=== PATIENT | female | born 1955 | race Caucasian/White ===

== ENCOUNTER 2025-05-17 16:54 | Emergency (ER) | payer MEDICARE, OTHER, SELFPAY ==
[2025-05-17 17:12] VITALS: BP 139/77
--- NOTE | 2025-05-17 20:12 | ED.GENMED ---
History of Present Illness
General
Chief Complaint: Fall
Source: patient
Exam Limitations: none
Time Seen by Provider: 05/17/25 19:51
History of Present Illness
History of Present Illness:
See MDM
Past History
Past History
ED Past Medical History: None
ED Past Surgical History: None
Social History
Tobacco: Non-smoker
Alcohol: None
Phy Exam
Physical Exam
Physical Exam:
See MDM
Course
Orders/Labs/Results
Orders:
Orders
05/17/25 17:20
CR Wrist - Right Min 3 Views Urgent
Comment:
Reason For Exam: fall/pain
05/17/25 20:10
Amoxicillin 875 mg/Clav 125 mg [Augmentin 875 mg/125 mg] 1 tablet PO NOW STA
Vital Signs
Initial and Last Documented VS:
Initial Vital Signs
Temp Pulse Resp BP Pulse Ox
97.7 F 68 20 139/77 98
05/17/25 17:12 05/17/25 17:12 05/17/25 17:12 05/17/25 17:12 05/17/25 17:12
Last Documented Vital Signs
Temp Pulse Resp BP Pulse Ox
97.7 F 68 20 139/77 98
05/17/25 17:12 05/17/25 17:12 05/17/25 17:12 05/17/25 17:12 05/17/25 17:12
Procedures
Laceration Closure
Left Distal Palmar Fifth Finger(s):
Status of Wound: clean
Size of Wound in cm: 3
Description of Wound Edges: ragged
Preparation: cleaned with Betadine
Anesthesia: 1% Lidocaine
Revision/Debridement: routine- no revision
Wound exploration: explored to base- no FB
Type of Closure: single layer closure
Skin Closure Material: 4-0 nylon
Number of sutures: 5
MDM/Problems Addressed
Differential Diagnosis Includes:
Note:
CHIEF COMPLAINT(S)
Fall with laceration to the hand and facial abrasions.
HISTORY OF PRESENT ILLNESS
The patient is a 69-year-old female who presented to the emergency department following a fall. The patient tripped over a sidewalk, resulting in laceration to the hand and abrasions on the face. According to the patient, she has experienced
increased bleeding from the hand laceration, although she is not on any blood-thinning medications. She reports soreness and holding the wound tightly to prevent further bleeding. Examination revealed the patient could bend her finger without
significant pain, though she reports feeling pressure.
The patient does not recall any loss of consciousness during the event. She denies any persistent pain when moving her pinky. The patient believes she is up to date with her tetanus vaccination, having received the T-dap within the last 18 months.
She is not allergic to any medications except for cefuroxime. The planned intervention includes local anesthesia followed by suturing of the hand laceration. The patient was advised to follow up with a specialist if she experiences increased pain or
other symptoms.
An examination of the face revealed bruising but no apparent facial fractures, as verified by manual compression over the zygomatic arch and dental assessment for loose teeth.
ALLERGIES
Patient reports allergy to Bactrim (sulfamethoxazole/trimethoprim).
REVIEW OF SYSTEMS
- *Musculoskeletal*: Soreness in the hand; can move fingers with pain described as pressure rather than sharp.
- *Integumentary*: Open laceration on hand with bleeding when not compressed; facial abrasions noted but no fractures evident.
- *Dental*: No loose teeth reported despite sensations of slight dislodgment during the fall.
- *Neurological*: Denies loss of consciousness.
PHYSICAL EXAM
General: Alert, no acute distress.
Skin: Warm, dry.
Head: Normocephalic, atraumatic
Neck: Appears supple, trachea midline.
Eyes, Ears, Nose, Mouth, and Throat: Oral mucosa moist.
Cardiovascular: No signs of cyanosis
Respiratory: Respirations are non-labored.
Abdomen: Non-distended
Musculoskeletal: 3 cm laceration to hypothenar eminence of right hand just below pinky finger. No issues with finger flexion. Distal finger neurovascular intact
Neurovascular: No focal neurological deficit observed.
Psychiatric: Cooperative, appropriate mood and affect.
PROBLEM LIST
- Acute: Hand laceration, facial abrasions.
- Chronic: No chronic problems mentioned.
PLAN
- Clean and suture the hand laceration after administering local anesthesia.
- Recommend follow-up with a hand specialist if there is pain upon finger movement after accounting for healing.
- Prescribe Augmentin (amoxicillin and clavulanate) for infection prophylaxis due to the contaminated nature of the wound.
- Confirm the tetanus vaccination status before discharge, but no immediate tetanus booster required based on the patients vaccination history.
DIFFERENTIAL DIAGNOSIS
The Differential Diagnosis includes, in no particular order and is not limited to:
- Contusions
- Ligament injury
- Fractures (despite initial imaging indications)
- Soft tissue infection
- Tendon damage
- Nerve injury
- Avulsion fracture
- Simple laceration
- Zygomatic arch fracture
- Dental injury
Disposition:
SUMMARY OF ENCOUNTER
The patient is a 69-year-old female who presented to the emergency department following a fall resulting in a laceration to her hand and facial abrasions. Five stitches were placed to manage the hand laceration. Due to potential contamination from
the injury occurring on a sidewalk curb, she was prescribed amoxicillin/clavulanate (Augmentin) for infection prophylaxis as she tolerated it before, despite an allergy to cefuroxime. Her tetanus vaccination is current, having received a T-dap
within the last 18 months. An X-ray showed no fracture, and she denied persistent pain or significant difficulty moving her finger, and there were no signs of ligamentous injury.
PLAN
Clean and suture the hand laceration after administering local anesthesia. Prescribe amoxicillin/clavulanate for infection prophylaxis. Advise patient to follow up with a hand specialist if pain or difficulty moving fingers develops.
INDEPENDENT REVIEW OF LABS AND INTERPRETATION OF TESTS
My independent interpretation of the X-ray shows no fracture.
MEDICATION RECONCILIATION
Amoxicillin/clavulanate (Augmentin) was prescribed for infection prophylaxis.
MEDICAL DECISION MAKING
-Complexity of Data Reviewed: Chronic conditions affecting care. Differential Diagnosis includes contusions, ligament injury, fractures, soft tissue infection, tendon damage, nerve injury, avulsion fracture, simple laceration, and dental injury.
-Data:
Category 1
My independent interpretation of the X-ray indicates no fracture.
-Risk:
Prescription medication was prescribed: amoxicillin/clavulanate for infection prophylaxis.
DIAGNOSIS
- Laceration of the hand (ICD-10: S61.411A)
- Facial abrasions (ICD-10: S00.81XA)
*Pulse Oximetry
SaO2: 98
Oxygen Mode of Delivery: Room air
Patient hypoxic: no
*Critical Care Note
Total Time (30-74mins, 75-104mins- exclusive of procedures): Not Applicable
ED Attending Note
-
Portions of this chart may have been created with voice recognition software.� Occasional wrong word or��sound alike� substitutions may have occurred due to the inherent limitations of voice recognition software.
Discharge Plan
Departure
Patient Disposition: Home (Routine Discharge)
Date of Disposition: 05/17/25
Time of Disposition: 20:15
Patient with high blood pressure during this ER visit?: No
Discharge Problem:
Hand laceration
Instructions: Laceration Repair With Stitches (DC)
Prescriptions:
New
amoxicillin-pot clavulanate 875-125 mg tablet
1 tab PO BID Qty: 14 0RF
Referrals:
Savannah Villagomez NP [Family Provider]
Jonathan Garner MD [Active, Orthopedics]
Activity Restrictions/Additional Instructions:
Keep wound clean and dry, change dressing if it becomes soiled or wet. Watch for signs of infection: fever over 100.5', increasing pain, red streaks around wound, swelling, drainage of pus, or bad smell. If any of these happen, return to ED
promptly. Return to ED or make an appointment with your doctor to have the 5 sutures removed in 7 days. All wounds may scar, however you may reduce the appearance of scarring by avoiding sun exposure to the scar and applying skin moisturizer with
spf protection to the scar once the wound is healed.
Interventions
Interventions:
*Risk Screen - Suicide Last Done: 05/17/25 17:12
*General Assessment Last Done: 05/17/25 17:12
*Neglect/Abuse Screening Last Done: 05/17/25 17:12
*ED- Fall Risk Assessment Last Done: 05/17/25 19:38
*ED COVID-19 Vaccine History Last Done: 05/17/25 19:38
ED- Neurological Assessment Last Done: 05/17/25 20:02
Discharge Date and Time
Print Language: [place]
== END 2025-05-17 20:44 | disposition home or self-care (01) ==
LOC: EMR 16:54
PROVIDERS: EMERGENCY PHYSICIAN Student in an Organized Health Care Education/Training Program; FAMILY PHYSICIAN Nurse Practitioner Adult Health
DX: S61.412A Laceration without foreign body of left hand, initial encounter (principal); W10.1XXA Fall (on)(from) sidewalk curb, initial encounter; Y93.01 Activity, walking, marching and hiking; Y92.480 Sidewalk as the place of occurrence of the external cause; Z88.1 Allergy status to other antibiotic agents
CPT/HCPCS: 99283; 12002; 73110